=== PATIENT | female | born 1960 | race African-American/Black ===

== ENCOUNTER → 2016-12-09 | Outpatient (CLI) | payer BC ==
[2016-12-09 13:06] LABS: BASOPHILS % (AUTO) 0.5 % (0.2-1.0); EOSINOPHILS # (AUTO) 0.2 x10^3/uL (0.0-0.2); EOSINOPHILS % (AUTO) 2.3 % (0.9-2.9); HEMATOCRIT 36.4 % (36.0-47.0); HEMOGLOBIN 12.4 g/dL (12.0-16.0); LYMPHOCYTES # (AUTO) 3.4 X10^3/uL (1.3-2.9); LYMPHOCYTES % (AUTO) 40.5 % (21.0-51.0); MEAN CORPUSCULAR HEMOGLOBIN 31.7 pg (27.0-34.0); MEAN CORPUSCULAR HGB CONC 34.1 g/dL (33.0-35.0); MEAN CORPUSCULAR VOLUME 92.8 fL (80.0-100.0); MEAN PLATELET VOLUME 6.3 fL (7.4-11.0); MONOCYTES # (AUTO) 0.5 x10^3/uL (0.3-0.8); MONOCYTES % (AUTO) 6.1 % (0.0-13.0); NEUTROPHILS # (AUTO) 4.3 x10^3/uL (2.2-4.8); NEUTROPHILS % (AUTO) 50.6 % (42.0-75.0); PLATELET COUNT 442 X10^3/uL (150.0-450.0); RED BLOOD COUNT 3.92 X10^6/uL (3.5-5.4); RED CELL DISTRIBUTION WIDTH 14.8 % (11.6-16.5); WHITE BLOOD COUNT 8.4 X10^3/uL (3.6-10.0)
[2016-12-09 13:19] LABS: ALANINE AMINOTRANSFERASE 22 Units/L (12-78); ALBUMIN 3.8 g/dL (3.4-5.0); ALKALINE PHOSPHATASE 65 Units/L (46-116); ASPARTATE AMINO TRANSFERASE 9 Units/L (15-37); BLOOD UREA NITROGEN 13 mg/dL (7-18); CALCIUM 8.9 mg/dL (8.5-10.1); CARBON DIOXIDE 34.1 mmol/L (21-32); CHLORIDE 104 mmol/L (98-107); CHOL/HDL RATIO 3.3 (0.0-5.0); CHOLESTEROL 156 mg/dL (0-200); CREATININE 1.04 mg/dL (0.55-1.02); GLUCOSE 94 mg/dL (65-99); HDL CHOLESTEROL 48 mg/dL (40-60); SODIUM 145 mmol/L (136-145); TRIGLYCERIDES 125 mg/dL (0-150); TSH (3RD GENERATION) 0.688 uIU/mL (0.358-3.74); eGFR BLACK RACES > 60 (>60); eGFR NON BLACK RACES 59 (>60)
[2016-12-09 14:25] LABS: MAGNESIUM 1.8 mg/dL (1.7-2.9)
== END ==
LOC: LAB 11:58
PROVIDERS: ATTEND Obstetrics & Gynecology Obstetrics
DX: E05.80 Other thyrotoxicosis without thyrotoxic crisis or storm (principal); E87.5 Hyperkalemia; I10 Essential (primary) hypertension
CPT/HCPCS: 36415; 80053; 80061; 83735; 84436; 84443; 84479; 85025

== ENCOUNTER → 2017-01-24 | Outpatient (CLI) | payer BC ==
--- NOTE | 2017-01-24 12:02 | RAD ---
HISTORY: Left elbow, upper arm pain Study: Left elbow three view Comparison: None Findings: No acute cortical disruption or dislocation is identified. No significant joint space effusion can be seen. The radial head is unremarkable in its appearance. IMPRESSION: 1. Negative exam. Reported By:
--- NOTE | 2017-01-24 15:22 | MRI ---
HISTORY: Back pain, left radiculopathy Study: MRI lumbar spine without contrast Comparison: None Technique: Multiplanar multi-sequence MRI of the lumbar spine was obtained. Sagittal T1, sagittal T 2, and stir weighted images, axial T1, and axial T2 images were obtained. Findings: The lumbar spine demonstrates normal alignment with the expected signal characteristics of the bone marrow. The conus of the cord terminates normally. T12 -- L1: No evidence for compressive disc disease. The neural foramina are patent. Bilateral facet arthropathy is present. L1 -- L2: No evidence for compressive disc disease. The neural foramina are patent. Bilateral facet arthropathy is present. L2 -- L3: No evidence for compressive disc disease. The neural foramina are patent. Bilateral facet arthropathy is present. L3 -- L4: There is broad-based disc protrusion which effaces the thecal sac and contributes along wi th bilateral facet arthropathy to moderate lateral recess narrowing bilaterally. L4 -- L5: There is broad-based disc protrusion which effaces the thecal sac and contributes along wi th bilateral facet arthropathy to lateral recess and foraminal narrowing bilaterally slightly more p rominent than at the levels above. L5 -- S1: No evidence for compressive disc disease. The neural foramina are patent. Bilateral facet arthropathy is present right greater than left. Incidental note is made of a fusiform infrarenal abdominal aortic aneurysm extending over a distance of 6 centimeters and demonstrating a maximum AP diameter of 4.1 centimeters and a maximum transvers e diameter 4.7 centimeters. Evaluation with CTA of the abdomen pelvis is recommended for further baron luation. IMPRESSION: Fusiform abdominal aortic aneurysm incidentally noted and described above and for which CTA of the a bdomen is recommended for further evaluation Findings for each disc level detailed above Reported By:
== END ==
LOC: RAD 10:25
PROVIDERS: ATTEND Obstetrics & Gynecology Obstetrics
DX: M54.5 Low back pain (principal); M25.522 Pain in left elbow; I71.4 Abdominal aortic aneurysm, without rupture
CPT/HCPCS: 72148; 73070

== ENCOUNTER → 2017-01-28 | Outpatient (CLI) | payer BC ==
[~2017-01-28] MED LIST: NS 100 ML IV 100 ML IV ONE
[2017-01-28 10:51] LABS: CREATININE 1.04 mg/dL (0.55-1.02)
--- NOTE | 2017-01-28 15:10 | CT ---
CTA ABDOMEN AND PELVIS WITH AND WITHOUT CONTRAST CLINICAL INDICATION: Abdominal aortic aneurysm. Abnormal MRI. PROCEDURE: Noncontrast CTA images were initially obtained through the abdomen and pelvis. Followin g administration of non-ionic IV contrast, postcontrast CTA images were obtained through the abdomen and pelvis. 3D reconstructions were performed. Dose reduction techniques including Automated Expos ure Control (AEC) and adjustment of mA and kV were utlized. COMPARISON: MRI 01/24/2017 FINDINGS: Vascular: The 4.1 cm infrarenal abdominal aortic aneurysm spanning a length of approximately 5.6 cm. Atherosclerotic calcification of the aorta and major branches.No dissection. CTA Abdomen without contrast: No gallstones, renal stones or proximal ureteral stones. CTA Pelvis without contrast: No distal ureteral stones or bladder stones. small intrinsically hyper attenuating lesion on the last slice of the study (series 4, image 95) within the region of the left vaginal wall measuring 1.9 cm. CTA Abdomen with intravenous contrast: Liver and spleen are normal in size, enhancement characterist ics and contour. No focal lesions. The portal vein is patent. No ductal dilitation. Gallbladder is p resent. No gallbladder wall thickening. The pancreas is unremarkable. Adrenal glands are normal. Kid neys enhance symmetrically without hydronephrosis. No bowel obstruction or inflammation. No abnormal appearing mesenteric or retroperitoneal lymph nod es. No free fluid or fluid collections. CTA Pelvis with contrast: The bladder is normal in appearance. Uterus is present. No free fluid or a bnormal pelvic lymph nodes. No aggressive osseous lesions. IMPRESSION: 1. Infrarenal abdominal aortic aneurysm as above. 2. Hyper attenuating lesion within the left vaginal wall. This is of uncertain etiology. Recommend c orrelation with physical examination. Reported By:
== END ==
LOC: RAD 10:20
PROVIDERS: ATTEND Obstetrics & Gynecology Obstetrics
DX: I71.4 Abdominal aortic aneurysm, without rupture (principal)
CPT/HCPCS: 36415; 74174; 82565; 84520; A4222